=== PATIENT | female | born 1965 | race Hispanic/Latino ===

== ENCOUNTER 2018-01-25 15:15 | Emergency (ER) | payer BC ==
[2018-01-25 15:29] VITALS: TEMP 97.9; O2SAT 98
[2018-01-25] MEDS ORDERED: Tdap Vaccine 0.5 ml Vial (10-64 yrs) IM ONE ×2 (15:30→16:19)
--- NOTE | 2018-01-25 16:02 | ED PDOC ---
HPI: Skin/Bite Injury Time Seen by Provider: 01/25/18 15:25 Chief Complaint (Nursing): Bite Chief Complaint (Provider): Dog Bite History Per: Patient History/Exam Limitations: no limitations Onset/Duration Of Symptoms: Mins (prior to arrival) Current Symptoms Are (Timing): Still Present Additional Complaint(s): 52 year old female presents to the ED for evaluation s/p being bitten by her dog at home just prior to arrival. She reports increased swelling to her left hand where she was bit. Dogs vaccinations up to date. Tetanus not up to date PMD: none provided Past Medical History Reviewed: Historical Data, Nursing Documentation, Vital Signs Vital Signs: Last Vital Signs Temp 97.9 F 01/25/18 15:26 Pulse 90 01/25/18 15:26 Resp 18 01/25/18 15:26 BP 180/106 H 01/25/18 15:26 Pulse Ox 98 01/25/18 15:26 - Medical History PMH: Anxiety, Asthma Denies: HIV, Chronic Kidney Disease - Surgical History Surgical History: No Surg Hx - Family History Family History: States: Unknown Family Hx - Social History Current smoker - smoking cessation education provided: No Alcohol: None Drugs: Denies - Immunization History Hx Tetanus Toxoid Vaccination: No (will update this visit) - Home Medications Home Medications: Ambulatory Orders Medication Instructions Recorded Albuterol Sulfate [Proair Hfa] 2 puff IH Q6H PRN 08/04/14 Mometasone [Asmanex Twisthaler 220 220 mcg IH DAILY 08/04/14 MCG] Naltrexone HCl/Bupropion HCl 2 tab PO BID 08/04/14 [Contrave ER 8-90 mg Tablet] Pantoprazole [Protonix] 40 mg PO DAILY #0 ect 08/05/14 Amoxicillin/Clavulanate [Augmentin 1 tab PO BID #9 tab 01/25/18 875 MG-125 MG] Ibuprofen [Motrin] 600 mg PO Q8 PRN #21 tab 01/25/18 - Allergies Allergies/Adverse Reactions: Allergies Allergy/AdvReac Type Severity Reaction Status Date / Time No Known Allergies Allergy Verified 01/25/18 15:26 Review of Systems ROS Statement: Except As Marked, All Systems Reviewed And Found Negative Musculoskeletal: Positive for: Other (swelling to left hand from dog bite) Physical Exam - Reviewed Nursing Documentation Reviewed: Yes Vital Signs Reviewed: Yes - Physical Exam Appears: Positive for: No Acute Distress Extremity: Positive for: Other (one superficial 1cm laceration proximal to pip on 4th digit, and one superficial 8mm abrasion noted distal to pip on 4th digit with moderate swelling noted to the dorsum of the left hand with erythema) Neurologic/Psych: Negative for: Motor/Sensory Deficits Comments: Exam limited due to pain - ECG O2 Sat by Pulse Oximetry: 98 (RA) Pulse Ox Interpretation: Normal - Progress ED Course And Treament: XRY OF HAND: NEG FOR FX Medical Decision Making Medical Decision Making: Time: 153 Initial Impression: dog bite Initial Plan: --senior technical project manager Andrew removed 3 rings with ring cutter from left third digit --Tetanus booster --Amoxicillin 1 tab PO --Ibuprofen 600mg PO --Left hand XR 1601 XR FINDINGS: BONES: Normal. No fracture. JOINTS: No significant osteoarthritic changes. SOFT TISSUES: Normal. OTHER FINDINGS: None. IMPRESSION: No definitive radiographic evidence of acute displaced fracture nor dislocation. 1627 Wounds rinsed profusely with saline and betadine. Steri-strips and finger splint placed. Educated on further wound care. Scribe Attestation: Documented by Rehana Singh, acting as a scribe for rIvin Mcintosh PA-C. Provider Scribe Attestation: All medical record entries made by the Scribe were at my direction and personally dictated by me. I have reviewed the chart and agree that the record accurately reflects my personal performance of the history, physical exam, medical decision making, and the department course for this patient. I have also personally directed, reviewed, and agree with the discharge instructions and disposition. Disposition - Clinical Impression Clinical Impression: Animal bite wound - Patient ED Disposition Is Patient to be Admitted: No - Disposition Disposition: Routine/Home Disposition Time: 16:34 Condition: FAIR Additional Instructions: FOLLOW UP WITH PMD OR ED IN 2 DAYS FOR WOUND CHECK Prescriptions: Amoxicillin/Clavulanate [Augmentin 875 MG-125 MG] 1 tab PO BID #9 tab Ibuprofen [Motrin] 600 mg PO Q8 PRN #21 tab PRN Reason: Pain, Moderate (4-7) Instructions: Animal Bites (DC) Forms: [facility] ED School/Work Excuse
--- NOTE | 2018-01-25 16:07 | RAD ---
PROCEDURE: Left Hand Radiographs. HISTORY: Hand injury COMPARISON: None. FINDINGS: BONES: Normal. No fracture. JOINTS: No significant osteoarthritic changes. SOFT TISSUES: Normal. OTHER FINDINGS: None. IMPRESSION: No definitive radiographic evidence of acute displaced fracture nor dislocation..
[2018-01-25] MEDS ORDERED: Amoxicillin-Clav 875-125 mg Tab PO ONE (16:20)
[2018-01-25 16:52] VITALS: BP 154/88; PULSE 87; RESP 17
[2018-01-25] MEDS ORDERED: Amoxicillin-Clav 875-125 mg Tab PO SCH (21:00)
== END 2018-01-25 16:52 | disposition home or self-care (01) ==
LOC: H.ER 15:15
DX: S61.452A Open bite of left hand, initial encounter (principal); W54.0XXA Bitten by dog, initial encounter; Y92.009 Unspecified place in unspecified non-institutional (private) residence as the place of occurrence of the external cause; J45.909 Unspecified asthma, uncomplicated; Z23 Encounter for immunization